=== PATIENT | female | born 1970 | race Caucasian/White ===

== ENCOUNTER 2016-11-05 09:58 | Emergency (ER) | payer OTHER ==
[~2016-11-05] VITALS: Ht 165.1 cm; Wt 97.5 kg
[2016-11-05 10:02] VITALS: BP 133/78; PULSE 75; RESP 15; TEMP 98.1; O2SAT 98
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
[2016-11-05] MEDS ORDERED: NAPR500T PO (11:17)
[2016-11-05] MEDS ORDERED: LORA-392 PO (11:17)
[2016-11-05] MEDS ORDERED: ZOLO25TA PO (11:17)
[2016-11-05] MEDS ORDERED: TOPA100T11 PO (11:17)
[2016-11-05] MEDS ORDERED: SUMA4INJ4 SQ (11:17)
[2016-11-05] MEDS ORDERED: ROPI1TAB72 PO (11:17)
[2016-11-05] MEDS ORDERED: IBUP800T23 PO (11:36)
[2016-11-05] MEDS ORDERED: ROBA750T PO (11:36)
[2016-11-05] MEDS ORDERED: KETOROLAC TROMETHAMINE 60 MG/2 ML (IM) VIAL IM ONE (11:45)
== END 2016-11-05 11:46 | disposition home or self-care (01) ==
LOC: PHED 09:58 → PHEFT 11:46
DX: M79.1 Myalgia (principal); V43.62XA Car passenger injured in collision with other type car in traffic accident, initial encounter; Y93.9 Activity, unspecified; Y92.9 Unspecified place or not applicable; Y99.9 Unspecified external cause status
CPT/HCPCS: 96372; 99283; J1885